=== PATIENT | male | born 1940 | race Caucasian/White ===

== ENCOUNTER → 2018-05-18 | Day surgery (SDC) | payer MEDICARE ==
[~2018-05-18] MED LIST: ALLOPURINOL100 MG PO; AMBIEN10 MG PO; ASPIR 8181 MG; FENTANYL CITRATE/PF 100MCG/2 ML INJ ONE; LIPITOR; LISINOPRIL; METFORMIN HCL500 M2 PO; MIDAZOLAM HCL 2 MG/2 ML VIAL ONE; MULTI-VITAMIN1 EACH; NASACORT; OMEPRAZOLE20 M1; OR PHACO EYE KIT ONE; PREOP PHACO EYE KIT ONE; REMERON15 MG PO; ZETIA10 MG PO; [UNRECOGNIZED DRUG - REMARK]
[2018-05-18 15:04] VITALS: BP 132/79
== END | disposition home or self-care (01) ==
LOC: OR 11:23
PROVIDERS: ATTEND Ophthalmology
DX: H25.041 Posterior subcapsular polar age-related cataract, right eye (principal); H25.11 Age-related nuclear cataract, right eye; G47.33 Obstructive sleep apnea (adult) (pediatric); I10 Essential (primary) hypertension; I25.10 Atherosclerotic heart disease of native coronary artery without angina pectoris; E11.9 Type 2 diabetes mellitus without complications; N20.0 Calculus of kidney; Z79.84 Long term (current) use of oral hypoglycemic drugs; Z95.5 Presence of coronary angioplasty implant and graft
CPT/HCPCS: 36415; 66984; 82948; J2250

== ENCOUNTER → 2018-06-01 | Day surgery (SDC) | payer MEDICARE ==
[2018-06-01 12:50] VITALS: BP 111/66
== END | disposition home or self-care (01) ==
LOC: OR 10:37
PROVIDERS: ATTEND Ophthalmology
DX: H25.042 Posterior subcapsular polar age-related cataract, left eye (principal); H25.12 Age-related nuclear cataract, left eye; G47.33 Obstructive sleep apnea (adult) (pediatric); E11.9 Type 2 diabetes mellitus without complications; R05 Cough; I10 Essential (primary) hypertension; I45.10 Unspecified right bundle-branch block; Z79.82 Long term (current) use of aspirin; Z79.84 Long term (current) use of oral hypoglycemic drugs
CPT/HCPCS: 36415; 66984; 82948; J2250